=== PATIENT | male | born 1945 | race Caucasian/White ===

== ENCOUNTER 2017-07-09 13:06 | Emergency (ER) | payer OTHER ==
[~2017-07-09] VITALS: Ht 167.6 cm; Wt 107.0 kg
--- NOTE | 2017-07-09 13:10 | NUR ---
AAOX3, BIBRA 89 C/O SYNCOPAL EPISODE. PATIENT PULLED OVER HIS CAR AND CALLED 911. NO TRAUMA. +ORTHO PER PROCESS EQUIPMENT OPERATOR REPORT. +DIAPHORETIC. RR IS EVEN AND UNLABORED WITH NAD NOTED. ASSISTED TO HOSPITAL GOWN. PLACED ON MONITOR. WILL CONTINUOUSLY MONITOR THE PATIENT. DR AMBROSE AT FOR EVAL.
[2017-07-09] MEDS ORDERED: ONDANSETRON HCL/PF 4 MG/2 ML VIAL ONE (13:21)
[2017-07-09 13:27] LABS: BASOPHILS # (AUTO) 0.1 /CMM (0.0-0.2); BASOPHILS % (AUTO) 0.6 % (0.0-2.0); EOSINOPHILS % (AUTO) 0.1 % (0.0-6.0); HEMATOCRIT 37 % (39-51); HEMOGLOBIN 12.6 g/dL (13.5-17.5); LYMPHOCYTES # (AUTO) 2.8 /CMM (0.8-4.8); LYMPHOCYTES % (AUTO) 26.9 % (20.0-44.0); MEAN CORPUSCULAR HGB CONC 34 g/dl (31.0-36.0); MEAN CORPUSCULAR VOLUME 96 fL (80-96); MONOCYTES % (AUTO) 9.1 % (2.0-12.0); NEUTROPHILS # (AUTO) 6.6 /CMM (1.8-8.9); NEUTROPHILS % (AUTO) 63.3 % (43.0-81.0); PLATELET COUNT (AUTO) 218 /CMM (150-450); RDW COEFFICIENT OF VARIATION 13.4 (11.5-15.0); RED BLOOD CELL COUNT(AUTO) 3.83 MIL/uL (4.5-6.0); WHITE BLOOD COUNT (AUTO) 10.5 K/uL (4.3-11.0)
[2017-07-09] MEDS ORDERED: ONDANSETRON HCL/PF 4 MG/2 ML VIAL IVP ONE (13:30)
[2017-07-09] MEDS ORDERED: IV NS 0.9% 1,000 ML BAG IV ONE ×2 (13:30→14:00)
[2017-07-09 13:40] LABS: CALCIUM, SERUM 8.9 mg/dL (8.5-10.1); CARBON DIOXIDE 20 mmol/L (21-32); CHLORIDE 100 mmol/L (98-107); CREATININE 1.8 mg/dL (0.6-1.3); GLUCOSE 141 mg/dL (74-106); POTASSIUM 3.9 mmol/L (3.5-5.1); SODIUM SERUM 135 mmol/L (136-145); UREA NITROGEN, BLOOD 27 mg/dL (7-18)
[2017-07-09 13:43] LABS: INR 1.02 (0.87-1.13)
[2017-07-09 13:46] LABS: ALANINE AMINOTRANSFERASE 51 U/L (12-78); ALBUMIN 3.6 g/dL (3.4-5.0); ALKALINE PHOSPHATASE 60 U/L (46-116); ASPARTATE AMINOTRANSFERASE 34 U/L (15-37); BILIRUBIN,DIRECT 0.2 mg/dL (0.0-0.2); BILIRUBIN,TOTAL 0.8 mg/dL (0.2-1.0); TOTAL PROTEIN, SERUM 6.8 g/dL (6.4-8.2)
[2017-07-09 13:48] LABS: TROPONIN I < 0.017 ng/mL (0.00-0.056)
--- NOTE | 2017-07-09 13:53 | NUR ---
PT TO CT
[2017-07-09] MEDS ORDERED: CT SWABBABLE VALVE TRANS SET 1 EA INFUS.SET MC ONE (13:57)
[2017-07-09] MEDS ORDERED: IOHEXOL-350 100 ML VIAL IV ONE (13:57)
[2017-07-09] MEDS ORDERED: IV NS 0.9% 250 ML IV ONE (13:57)
[2017-07-09 14:03] LABS: PARTIAL THROMBOPLASTIN TIME < 20 SEC (23-34)
--- NOTE | 2017-07-09 14:20 | NUR ---
PT BACK FROM CT
--- NOTE | 2017-07-09 15:15 | NUR ---
CALLED [facility], PRESENTED PT, AWAITING CALL BACK FROM [facility]
--- NOTE | 2017-07-09 15:59 | NUR ---
Patient is resting comfortably in bed with eyes closed. Easily aroused. VSS. BEDSIDE WITH PT
--- NOTE | 2017-07-09 17:02 | NUR ---
PT ACCEPTED TO [facility], ROOM [address]A, BY DR.M OLMSTEAD. NUMBER TO GIVE REPORT IS [phone], [facility] SHOULD ARRIVE BY 1800.
[2017-07-09 17:10] VITALS: BP 123/75
--- NOTE | 2017-07-09 17:14 | NUR ---
REPORT GIVEN TO WARREN RAMONE COKO FOR [facility].
--- NOTE | 2017-07-09 17:35 | NUR ---
Patient is resting comfortably in bed with no S/S of distress noted. VSS
--- NOTE | 2017-07-09 18:19 | NUR ---
prn bedside to transport pt
--- NOTE | 2017-07-09 18:19 | NUR ---
Patient Tranfers to outside Facility Physician: AYSHA Location:[facility], ROOM [address]A. VSS UPON TRANSFER.
== END 2017-07-09 18:24 | disposition short-term general hospital (02) ==
LOC: ER 13:07
DX: R55 Syncope and collapse (principal); E86.0 Dehydration; N40.0 Benign prostatic hyperplasia without lower urinary tract symptoms
CPT/HCPCS: 36415; 70450; 71045; 71275; 74174; 80048; 80076; 84484; 85025; 85730; 93005; 96361; 96374; 99285; A4606; J2405; J7030 ×2; J7050; Q9967; Z7610